=== PATIENT | male | born 1970 | race Caucasian/White ===

== ENCOUNTER 2023-12-29 16:20 | Outpatient (CLI) | payer OTHER, SELFPAY | END 2023-12-29 16:21 | disposition home or self-care (01) | LOC: NFLDREF 12-31 07:07 | PROVIDERS: PCP Family Medicine; Referring Provider Family Medicine; Visit Provider Family Medicine | DX: E78.5 Hyperlipidemia, unspecified (principal); Z13.228 Encounter for screening for other metabolic disorders; Z12.5 Encounter for screening for malignant neoplasm of prostate | CPT/HCPCS: 80053; 80061; G0103 ==

== ENCOUNTER 2024-09-08 16:04 | Outpatient (CLI) | payer OTHER, SELFPAY | END 2024-09-08 16:05 | disposition home or self-care (01) | LOC: NFLDREF 09-13 03:36 | PROVIDERS: PCP Family Medicine; Referring Provider Family Medicine; Visit Provider Family Medicine | DX: E78.5 Hyperlipidemia, unspecified (principal); Z12.5 Encounter for screening for malignant neoplasm of prostate | CPT/HCPCS: 80053; 80061; G0103 ==